=== PATIENT | male | born 1935 | race Caucasian/White ===

== ENCOUNTER 2018-11-07 15:36 | Emergency (ER) | payer OTHER ==
[~2018-11-07] VITALS: Ht 170.2 cm; Wt 86.2 kg
[2018-11-07 15:51] VITALS: BP_SYST 128
[2018-11-07] MEDS ORDERED: NACL 0.9% 1,000 ML IV ONE (16:00)
[2018-11-07] MEDS ORDERED: MORPHINE 2 MG/ML INJ. SYRINGE IVP ONE (16:00)
[2018-11-07 16:30] LABS: BASOPHILS % (AUTO) 0.2 % (0.0-2.0); EOSINOPHILS # (AUTO) 0.1 K/uL (0.0-0.4); EOSINOPHILS % (AUTO) 1.3 % (0.0-4.0); HEMATOCRIT 31.1 % (36-54); HEMOGLOBIN 10.3 g/dL (14.0-18.0); LYMPHOCYTES # (AUTO) 0.9 K/uL (1.0-5.5); MEAN CORPUSCULAR HEMOGLOBIN 29 pg (27-31); MEAN CORPUSCULAR HGB CONC 33 % (32-36); MEAN CORPUSCULAR VOLUME 88 fL (79.0-98.0); MONOCYTES # (AUTO) 0.5 K/uL (0.0-1.0); MONOCYTES % (AUTO) 7.5 % (1.7-9.3); NEUTROPHILS # (AUTO) 4.6 K/uL (1.8-7.7); PLATELET COUNT (AUTO) 159 K/uL (130-430); RED BLOOD CELL COUNT(AUTO) 3.54 MIL/uL (4.2-6.2); RED CELL DISTRIBUTION WIDTH 17.6 % (9.0-15.0)
[2018-11-07 16:40] LABS: ANION GAP 11 (5-15); CALCIUM 9.1 mg/dL (8.4-11.0); CHLORIDE 105 mmol/L (98-107); CREATININE 1.13 mg/dL (0.55-1.30); GLUCOSE 91 mg/dL (70-99); POTASSIUM 4.5 mmol/L (3.5-5.1); SODIUM SERUM 141 mmol/L (136-145); UREA NITROGEN, BLOOD 21 mg/dL (8-21)
[2018-11-07 16:49] LABS: ALANINE AMINOTRANSFERASE 27 U/L (12-78); ALBUMIN 3.2 g/dL (3.4-4.8); ASPARTATE AMINOTRANSFERASE 25 U/L (10-37); TOTAL BILIRUBIN 0.3 mg/dL (0.0-1.0)
[2018-11-07 19:03] VITALS: BP_SYST 130
== END 2018-11-07 19:00 | disposition home or self-care (01) ==
LOC: SED 15:36
DX: S00.03XA Contusion of scalp, initial encounter (principal); R42 Dizziness and giddiness; D64.9 Anemia, unspecified; M54.5 Low back pain; E11.9 Type 2 diabetes mellitus without complications; I10 Essential (primary) hypertension; Z88.1 Allergy status to other antibiotic agents; W19.XXXA Unspecified fall, initial encounter; Y93.89 Activity, other specified; Y92.89 Other specified places as the place of occurrence of the external cause; Y99.8 Other external cause status
CPT/HCPCS: 36415; 70450; 71110; 72125; 72128; 72131; 80053; 82962; 84484; 85025; 93005; 96361; 96374; 99284; J2270; J7030

== ENCOUNTER 2019-08-14 03:17 | Inpatient (IN) | payer OTHER ==
[~2019-08-14] VITALS: Ht 170.2 cm; Wt 88.9 kg
[2019-08-14 03:20] VITALS: BP_SYST 201
--- NOTE | 2019-08-14 03:20 | NUR ---
Pt brought in by [facility] ambulance. Pt awake, disoriented, non verbal upon arrival. EMS states that patient had mechanical slip and fall after loosing his balance in his home. EMS states that patient hit his head on floor and his called to have patient transported to emergency department. Pt arrived in ER mumbling and groaning, no comprehensible speech. Pt demonstrated no guarding or other acute signs of distress. Pt has unlabored breathing, with symmetrical chest rise and fall. Pt vital signs stable.
--- NOTE | 2019-08-14 03:20 | NUR ---
Patient to ER bed 06 to gown for evaluation. Side rails up. Report given to PABLO Morales.
--- NOTE | 2019-08-14 03:55 | NUR ---
ED MD Lara at bedside for medical evaluation.
--- NOTE | 2019-08-14 04:33 | NUR ---
Pt daughter "Lillian" returned phone call to provide additional information. She states patient has severe dementia, is a poor historian. She states that patient is very un-trusting of healthcare and would not have willingly gone to hospital unless he was not aware or otherwise in need of assistance. 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 Phone number [phone]
--- NOTE | 2019-08-14 05:24 | NUR ---
# 20 gauge angiocath placed to right hand. Use of asceptic technique. Opsite placed over site. Blood return noted. Blood for lab drawn from site. Flushed with 10 cc of normal saline. No evidence of infiltration noted. Patient tolerated well.
[2019-08-14 05:48] LABS: BASOPHILS % (AUTO) 0.1 % (0.0-2.0); EOSINOPHILS # (AUTO) 0.2 K/uL (0.0-0.4); EOSINOPHILS % (AUTO) 1.8 % (0.0-4.0); HEMATOCRIT 32.1 % (36-54); HEMOGLOBIN 10.6 g/dL (14.0-18.0); LYMPHOCYTES # (AUTO) 1.1 K/uL (1.0-5.5); LYMPHOCYTES % (AUTO) 12.3 % (20.5-51.5); MEAN CORPUSCULAR HEMOGLOBIN 29 pg (27-31); MEAN CORPUSCULAR HGB CONC 33 % (32-36); MEAN CORPUSCULAR VOLUME 88 fL (79.0-98.0); MONOCYTES # (AUTO) 0.8 K/uL (0.0-1.0); MONOCYTES % (AUTO) 8.8 % (1.7-9.3); NEUTROPHILS # (AUTO) 6.7 K/uL (1.8-7.7); PLATELET COUNT (AUTO) 146 K/uL (130-430); RED BLOOD CELL COUNT(AUTO) 3.63 MIL/uL (4.2-6.2); RED CELL DISTRIBUTION WIDTH 16.6 % (9.0-15.0); WHITE BLOOD COUNT (AUTO) 8.6 K/uL (4.8-10.8)
--- NOTE | 2019-08-14 06:00 | NUR ---
Pt awoke from stupor. Pt started yelling that he needs some pain medication for pain "all over". Pt re-interviewed by at bedside. Pt is now awake, alert, oriented x4
--- NOTE | 2019-08-14 06:19 | NUR ---
Pt resting in ED bed comfortably. Refused Urine collection at this time.
[2019-08-14 06:55] LABS: ANION GAP 9 (5-15); CALCIUM 8.5 mg/dL (8.4-11.0); CHLORIDE 108 mmol/L (98-107); CREATININE 1.07 mg/dL (0.55-1.30); GLUCOSE 131 mg/dL (70-99); POTASSIUM 3.6 mmol/L (3.5-5.1); SODIUM SERUM 146 mmol/L (136-145); UREA NITROGEN, BLOOD 15 mg/dL (8-21)
[2019-08-14 07:03] LABS: ALANINE AMINOTRANSFERASE 47 U/L (12-78); ALBUMIN 3.1 g/dL (3.4-4.8); ASPARTATE AMINOTRANSFERASE 28 U/L (10-37); TOTAL BILIRUBIN 0.4 mg/dL (0.0-1.0)
[2019-08-14] MEDS ORDERED: traMADol HCL HCL 50 MG TABLET (ULTRAM) PO PRN (07:15)
[2019-08-14] MEDS ORDERED: INSULIN REGULAR, HUMAN 100 UNITS/ML, 10 ML VIAL (humuLIN R) SUBCUT PRN (07:15)
--- NOTE | 2019-08-14 07:30 | NUR ---
Report given to PABLO Andrea. All care endorsed
--- NOTE | 2019-08-14 07:45 | NUR ---
TRAMADOL 50MG ADMINISTERED TO PT DUE TO C/O PAIN IN LEGS. PT TOLERATED WELL, WILL CONTINUE TO MONITOR.
[2019-08-14] MEDS ORDERED: traMADol HCL HCL 50 MG TABLET (ULTRAM) ONE (07:57)
[2019-08-14] MEDS ORDERED: GLUCOSE 15 GM GEL (in 37.5 GM TUBE) PO PRN (08:30)
[2019-08-14] MEDS ORDERED: D5W 1,000 ML IV PRN (08:30)
[2019-08-14] MEDS ORDERED: DEXTROSE 50%-WATER 50 ML DISP.SYRIN IVP PRN (08:30)
--- NOTE | 2019-08-14 08:30 | NUR ---
PT CURRENTLY DISORIENTED, REFUSING CARE, SECURITY AT BEDISDE FOR SAFETY. CONTACT WITH MED SURG UNIT MADE FOR BED PLACEMENT HOWEVER THEY STATED ALL NURSES HAVE MAX PATIENT RATIO AT THIS TIME.
--- NOTE | 2019-08-14 08:50 | NUR ---
PT REFUSING TO BE PLACED ON [employer], HAVE VITALS TAKEN, IV PLACED OR OTHER INTERVENTIONS AT THIS TIME.
[2019-08-14] MEDS ORDERED: ASPIRIN 81 MG TAB.CHEW PO SCH (09:00)
[2019-08-14] MEDS ORDERED: FUROSEMIDE 20 MG/2 ML VIAL IVP SCH (09:00)
--- NOTE | 2019-08-14 09:20 | NUR ---
CONSULT CARDIO. CONSULTING MD: DR. LEA SPOKE TO: HELEN DIALED: [phone] ORDERED BY: DR. BARTHOLOMEW
--- NOTE | 2019-08-14 09:21 | NUR ---
CONSULT HUGO. CONSULTING MD: DR. PALACIO SPOKE TO: HELEN DIALED: [phone] ORDERED BY: DR. BARTHOLOMEW
--- NOTE | 2019-08-14 09:35 | NUR ---
PT REFUSED IV PLACEMENT WELL LASIX
--- NOTE | 2019-08-14 10:01 | NUR ---
DR LEA HERE FOR EVALUATION A CONSULT FROM DR BARTHOLOMEW
[2019-08-14] MEDS ORDERED: CARVEDILOL 6.25 MG TABLET (COREG) PO ONE (10:15)
--- NOTE | 2019-08-14 11:30 | NUR ---
PT RESTING IN BED AT THIS TIME ASLEEP, NO DISTRESS NOTED.
--- NOTE | 2019-08-14 12:00 | NUR ---
Patient will be admitted to care of [facility]. Admitted to TELE unit. Will go to room 112A. Belongings list completed. Complete and up to date summary report printed. SBAR report to be given at bedside with opportunity for questions.
--- NOTE | 2019-08-14 12:38 | NUR ---
late entry due to pt care 1140 ADMIT NOTE Received pt from ER to the floor with a diagnosis of evelated troponin, cva. Admission process initiated. patient oriented to pain management, safety and call light-teach back done.
[2019-08-14 13:27] VITALS: BP_SYST 183
[2019-08-14] MEDS ORDERED: FLU VACC TS2019(65UP)/MF59C/PF 45 MCG/0.5 ML SYRINGE I.M. PRN (13:45)
--- NOTE | 2019-08-14 14:02 | NUR ---
ROUNDS PATIENT CAME FROM ED WITHOUT IV ACCESS. EDUCATED PATIENT RE NEEDS. PATIENT REFUSED TO BE POKE. PATIENT ALSO REFUSED ECHOCARDIOGRAM AND STATED ONLY HAD 1 3 MONTHS AGO AT HIS [facility] OFFICE DR BALDERAS. REPORTED CALLED DR ROA OFFICE AND REQUESTED COPY OF MOST RECENT ECHO REPORT
[2019-08-14 16:14] VITALS: BP_SYST 184
--- NOTE | 2019-08-14 16:31 | NUR ---
PT. WANTS TO SIGN OUT AMA. CALL TO HIS DAUGHTER AND . IS COMING TO PICK PT. UP. PT. REFUSING ALL CARE AND IS WAITING FOR HIS . WILL GIVE THE AMA FORM FOR SIGNING WHEN HIS IS AT BEDSIDE.
--- NOTE | 2019-08-14 18:50 | NUR ---
PT. HAD EMOTIONAL OUTBURST AND STATED HIS DAUGHTER . REASSURANCE GIVEN AND HE IS MORE RELAXED. DENIES PAIN, VSS, CALL LIGHT IN REACH. SR ON MONITOR.
--- NOTE | 2019-08-14 19:51 | NUR ---
AMA: Patient does not wish to proceed with medical care recommended by DR BARTHOLOMEW. Patient given information related to possible complications, up to and including , which could occur as a result of leaving hospital at this time. Patient verbalizes understanding of risks involved leaving against medical advice. Patient has signed AMA form. PATIENT'S AT THE BEDSIDE, DAUGHTER KATI WAS NOTIFIED BY PRIOR AUTHORIZATION NURSE ABOUT PATIENT LEAVING AGAINTS MEDICAL ADVISE
[2019-08-14] MEDS ORDERED: cloNIDine HCL 0.2 MG TABLET PO SCH (21:00)
[2019-08-14] MEDS ORDERED: CARVEDILOL 6.25 MG TABLET (COREG) PO SCH (21:00)
[2019-08-15] MEDS ORDERED: ATORVASTATIN 20 MG TABLET PO SCH (09:00)
[2019-08-15] MEDS ORDERED: ASPIRIN 81 MG TAB.CHEW PO SCH (09:00)
[2019-08-15] MEDS ORDERED: FUROSEMIDE 40 MG TABLET PO SCH (09:00)
[2019-08-15] MEDS ORDERED: amLODIPine BESYLATE 10 MG TABLET PO SCH (09:00)
== END 2019-08-14 19:48 | disposition left against medical advice (07) | DRG 312 ==
LOC: SED 03:17 → STU 07:15
PROVIDERS: ADMIT Family Medicine; ATTEND Family Medicine
DX: R55 Syncope and collapse (principal); I69.354 Hemiplegia and hemiparesis following cerebral infarction affecting left non-dominant side; I50.30 Unspecified diastolic (congestive) heart failure; S05.91XA Unspecified injury of right eye and orbit, initial encounter; I25.10 Atherosclerotic heart disease of native coronary artery without angina pectoris; D64.9 Anemia, unspecified; I11.0 Hypertensive heart disease with heart failure; G89.29 Other chronic pain; M54.9 Dorsalgia, unspecified; F29 Unspecified psychosis not due to a substance or known physiological condition; R41.82 Altered mental status, unspecified; E66.9 Obesity, unspecified; C44.329 Squamous cell carcinoma of skin of other parts of face; E11.9 Type 2 diabetes mellitus without complications; I87.8 Other specified disorders of veins; W18.30XA Fall on same level, unspecified, initial encounter; Y93.89 Activity, other specified; Y92.098 Other place in other non-institutional residence as the place of occurrence of the external cause; Y99.8 Other external cause status; Z95.5 Presence of coronary angioplasty implant and graft; Z85.828 Personal history of other malignant neoplasm of skin; Z88.1 Allergy status to other antibiotic agents; I25.2 Old myocardial infarction; Z68.30 Body mass index [BMI] 30.0-30.9, adult
CPT/HCPCS: 36415; 70450-TC; 70486-TC; 71045; 80053; 82962; 83880; 84484; 85025; 93005; 99285; G0378; J1815; J1940